=== PATIENT | female | born 1975 | race Caucasian/White ===

== ENCOUNTER 2017-09-09 10:49 | Emergency (ER) | payer OTHER ==
[~2017-09-09] VITALS: Ht 160 cm; Wt 104.8 kg
[2017-09-09 10:54] VITALS: BP 124/85
--- NOTE | 2017-09-09 11:41 | ED UPPER/LOWER EXTREMITY COMPL ---
History of Present Illness General Chief Complaint: Lower Extremity Injury Stated Complaint: R KNEE INJURY Source: patient, old records Exam Limitations: no limitations Vital Signs & Intake/Output Vital Signs & Intake/Output Vital Signs Date Time Temp Pulse Resp B/P B/P Pulse O2 O2 Flow FiO2 Mean Ox Delivery Rate 09/09 1054 97.0 84 20 124/85 99 Room Air Allergies Coded Allergies: No Known Allergies (09/09/17) Reconcile Medications Multivitamin (Daily Multiple Vitamin) 1 EACH TABLET 1 TAB PO DAILY VITAMIN SUPPORT (Reported) Triage Note: PT STATES SHE WAS DOING JOSE AND CAME DOWN WRONG ON HER RIGHT KNEE. PT STATES UNABLE TO BEAR WEIGHT. DECLINES MOTRIN IN TRIAGE Triage Nurses Notes Reviewed? yes Onset: Abrupt Duration: hour(s): (1), constant Timing: recent history Severity: moderate Severity Numbers: 5 Pain/Injury Location: Right: Knee. Method of Injury: sports injury Modifying Factors: Improves With: rest. Worsens With: movement. Associated Symptoms: none : No Patient currently breastfeeds: No HPI: 41 year old female with no medical history presents to the ER for evaluation complaining of right medial knee pain. she injured this morning at [place] while jumpng and twisting landing on her knee. she denies any other injury, no hip foot or ankle pain. pain is described ast 5/10 constant aching. better with keeping it straight. Worse with weight bearing. only minimal worsening of symptoms with rom. she has not taken anything for her symtpoms. (Wilbur Sheth) Past History Travel History Traveled to [place] past 21 day No Medical History Any Pertinent Medical History? none Surgical History Surgical History: none Psychosocial History What is your primary language Macedonian Tobacco Use: Never used ETOH Use: occasional use Illicit Drug Use: denies illicit drug use Family History Hx Contributory? No (Wilbur Sheth) Review of Systems Review of Systems Constitutional: Reports: no symptoms, see HPI. Comments Review of systems: See HPI, All other systems negative. Constitutional, no chills no fever HEENT: no sore throat no congestion Cardiovascular: No chest pain Skin: no rashes, no change in skin Respiratory: No dyspnea no cough GI: No nausea no vomiting, Muscle skeletal: joint pain, no back pain, no neck pain, Neurologic: , no headache Heme/endocrine: No bruising Immunology: No lymphadenopathy (Wilbur Sheth) Physical Exam Physical Exam General Appearance: well developed/nourished, no apparent distress, alert, awake Comments: Well-developed well-nourished patient in no apparent distress. HEENT: Atraumatic, extraocular motion intact Neck: Supple, FROM Back: FROM Respiratory: No respiratory distress. Patient speaking in full complete sentences. Breath sounds clear to auscultation bilaterally: NO W/R/R Upper Extremities: full range of motion Hip/Pelvis: Atraumatic/Stable. FROM. No pain with pelvic compression Knee: Atraumatic/stable.tenderness to palpation over the medial R knee LROM SECONDARY TO PAIN, NO ECCHYMOSIS. No joint swelling, no effusion. No laxity. Negative sukhwinder/anterior drawer test. No pain with ROM Leg: Atraumatic. Nontender. No edema, 5 out of 5 strength in the lower extremity, normal dorsiflexion of great toe bilaterally, gross sensation is intact Ankle/Foot: Atraumatic/stable. Skin intact. FROM. No swelling, no effusion. No laxity on exam Pulses: Normal/equal DP/PT pulses bilaterally. Brisk cap refill Neuro: awake, alert, and oriented to person, place and time. There were no obvious focal neurologic abnormalities. Skin: Warm & dry;No appreciable rash on exposed skin Psych: Mood affect normal, normal memory normal judgment. (Jose E MICHAEL,Wilbur) Progress Differential Diagnosis: contusion, dislocation, fracture, sprain, tendon injury Plan of Care: Orders Procedure Date/time Status XRY-KNEE COMPLETE RIGHT 09/09 1105 Active xray was ordered from triage. I discussed with patient her x-ray results she is declining knee immobilizer or crutches states she has an Jarrett wrap at home I discussed with her the need for rest ice elevation, I gave her information for follow-up with [facility] she is declining any pain medication again when offered. She feels comfortable plan Diagnostic Imaging: Viewed by Me: Radiology Read. Discussed w/RAD: Radiology Read. Radiology Impression: PATIENT: KRISTIE HOLLOWAY PRESENT AGE: 41 PATIENT ACCOUNT NO: [id number] : 75 LOCATION: [facility] ORDERING PHYSICIAN: Wilbur MICHAEL SERVICE DATE: 09/09/17 EXAM TYPE: RAD - XRY- KNEE COMPLETE RIGHT EXAMINATION: XR KNEE, RIGHT CLINICAL INFORMATION: Knee injury. COMPARISON: None TECHNIQUE: 5 views of the right knee. FINDINGS: There is normal articulation. Marginal osteophytes in the medial compartment. No visible acute fracture or dislocation. Small to moderate effusion. IMPRESSION: Mild medial compartment arthritis. Small to moderate effusion. No radiographic evidence of discrete acute fracture. DICTATED BY: Vitaliy Willson MD DATE/TIME DICTATED:09/09/171152 BLACK OFF WORKER:ANGEL DATE/TIME TRANSCRIBED:1152 CONFIDENTIAL, DO NOT COPY WITHOUT APPROPRIATE AUTHORIZATION. < Electronically signed in Other Vendor System> SIGNED BY: Vitaliy Willson MD 09/09/17 1214 (Wilbur Sheth) Departure Departure Time of Disposition: 1206 Disposition: HOME OR SELF CARE Condition: Stable Clinical Impression Primary Impression: Knee strain Referrals: [facility],[place] (PCP/Family) [facility],[place] Additional Instructions: rest, ice, tyelnol or motrin for pain. follow up with orthopedist dr orona as discussed if your symptoms persist. Departure Forms: Customer Survey General Discharge Information (Wilbur Sheth) PA/CONSTRUCTION SPECIALIST Co-Sign Statement Statement: ED Attending supervision documentation- [] I saw and evaluated the patient. I have also reviewed all the pertinent lab results and diagnostic results. I agree with the findings and the plan of care as documented in the PA's/CONSTRUCTION SPECIALIST's documentation. [X] I have reviewed the ED Record and agree with the PA's/CONSTRUCTION SPECIALIST's documentation. [] Additions or exceptions (if any) to the PAs/CONSTRUCTION SPECIALIST's note and plan are summarized below: [] ([facility],Shar Baker)
[2017-09-09] MEDS ORDERED: DAILY MULTIPLE1 EACH PO (11:46)
--- NOTE | 2017-09-09 12:14 | RADIOLOGY REPORT ---
EXAMINATION: XR KNEE, RIGHT CLINICAL INFORMATION: Knee injury. COMPARISON: None TECHNIQUE: 5 views of the right knee. FINDINGS: There is normal articulation. Marginal osteophytes in the medial compartment. No visible acute fracture or dislocation. Small to moderate effusion. IMPRESSION: Mild medial compartment arthritis. Small to moderate effusion. No radiographic evidence of discrete acute fracture.
== END 2017-09-09 12:10 ==
LOC: ERH 10:49
DX: S86.811A Strain of other muscle(s) and tendon(s) at lower leg level, right leg, initial encounter (principal); X58.XXXA Exposure to other specified factors, initial encounter; Y93.41 Activity, dancing; Y92.9 Unspecified place or not applicable
CPT/HCPCS: 73562-RT